=== PATIENT | female | born 1985 | race Asian ===

== ENCOUNTER 2019-01-27 06:04 | Inpatient (IN) | payer OTHER ==
[2019-01-27] MEDS ORDERED: OXYTOCIN/RINGERS LACTATE 1,000 ML IV PRN (06:24)
[2019-01-27] MEDS ORDERED: LR 1,000 ML IV PRN (06:24)
[2019-01-27] MEDS ORDERED: IBUPROFEN 600 MG TAB PO PRN (06:24)
[2019-01-27] MEDS ORDERED: MISOPROSTOL 200 MCG TAB PR PRN (06:24)
[2019-01-27] MEDS ORDERED: LIDOCAINE 1% 300 MG/30 ML SDV SC PRN (06:24)
[2019-01-27] MEDS ORDERED: OLIVE OIL 118 ML BTL MISC PRN (06:24)
[2019-01-27] MEDS ORDERED: EPSOM SALT 454 GM TP PRN (06:24)
[2019-01-27 07:04] LABS: PLATELET COUNT 284 10^3/uL (150-400)
[2019-01-27] MEDS ORDERED: AMMONIA AROMATIC 1 EACH AMP IH ONE (07:22)
[2019-01-27] MEDS ORDERED: OXYTOCIN 10 UNIT/ML VIAL ONE (07:23)
[2019-01-27] MEDS ORDERED: TERBUTALINE SULFATE 1 MG/ML VIAL ONE (07:23)
[2019-01-27] MEDS ORDERED: OXYTOCIN/LR *STANDARD DOSE PROTOCOL IV SCH (09:30)
--- NOTE | 2019-01-27 12:18 | PDGENHP ---
History and Physical - Chief Complaint Elective IOL - History of Present Illness Bee is a 33 yo now today at 39w1d by LEA of 02/02/19 (LEA based on 7wk US ) - who presents for elective IOL. Was 3cm in clinic last week. 2.5 yo daughter Lynda was born via - long labor and pushed for approximately 2 hours, ultimately needed an episiotomy for expedited delivery due to distress - had a nuchal x 1. This overall uncomplicated. Increased BMI. Failed Glucola passed 3hr. She has recently had an URI that's really been bothering her - but seems to be improving here recently. Labs: B positive AB negative Glucola 177, passed 3hr RPR NR Rubella IMMUNE Hep B neg HIV neg Standard Neg Parvo non-immune GCC neg AFP neg Innatal Neg GBS NEG VZV IMMUNE History Information - Allergies/Home Medication List Allergies/Adverse Reactions: shrimp Allergy (Uncoded 09/21/12 23:07) Home Medications: Prenatl Vit6/Iron/FA/B12/Ca/D3 07/01/16 [Last Taken 01/26/19 21:00] Famotidine [Pepcid 40mg] 40 mg PO HS PRN 01/27/19 [Last Taken 01/25/19 21:00] I have personally reviewed and updated: family history, medical history, social history, surgical history Past Medical History: Increased BMI - Surgical History Reports: no pertinent surgical hx - Family History Positive for: non-pertinent - Social History Smoking Status: Never smoked Review of Systems Review of Systems: ROS: 10pt was reviewed & negative except for what was stated in HPI & below Physical Exam Physical Exam: Alert, pleasant. Gravid abdomen, longitudinal lie No SCE initially. FHR 135bpm, mod jorge, accels present, no decels Tomas De Castro Irritable Lab Data & Imaging Review 01/27/19 06:45 WBC 10.71 10^3/uL (3.80-9.50) H 01/27/19 06:45 RBC 4.87 10^6/uL (4.18-5.33) 01/27/19 06:45 Hgb 13.6 g/dL (12.6-16.3) 01/27/19 06:45 Hct 40.9 % (38.0-47.0) 01/27/19 06:45 MCV 84.0 fL (81.5-99.8) 01/27/19 06:45 MCH 27.9 pg (27.9-34.1) 01/27/19 06:45 MCHC 33.3 g/dL (32.4-36.7) 01/27/19 06:45 RDW 14.0 % (11.5-15.2) 01/27/19 06:45 Plt Count 284 10^3/uL (150-400) 01/27/19 06:45 MPV 10.7 fL (8.7-11.7) 01/27/19 06:45 Neut % (Auto) 69.8 % (39.3-74.2) 01/27/19 06:45 Lymph % (Auto) 20.3 % (15.0-45.0) 01/27/19 06:45 [place] % (Auto) 7.5 % (4.5-13.0) 01/27/19 06:45 Eos % (Auto) 0.8 % (0.6-7.6) 01/27/19 06:45 Baso % (Auto) 0.1 % (0.3-1.7) L 01/27/19 06:45 Nucleat RBC Rel Count 0.0 % (0.0-0.2) 01/27/19 06:45 Absolute Neuts (auto) 7.48 10^3/uL (1.70-6.50) H 01/27/19 06:45 Absolute Lymphs (auto) 2.17 10^3/uL (1.00-3.00) 01/27/19 06:45 Absolute Monos (auto) 0.80 10^3/uL (0.30-0.80) 01/27/19 06:45 Absolute Eos (auto) 0.09 10^3/uL (0.03-0.40) 01/27/19 06:45 Absolute Basos (auto) 0.01 10^3/uL (0.02-0.10) L 01/27/19 06:45 Absolute Nucleated RBC 0.00 10^3/uL (0-0.01) 01/27/19 06:45 Immature Gran % 1.5 % (0.0-1.1) H 01/27/19 06:45 Immature Gran # 0.16 10^3/uL (0.00-0.10) H 01/27/19 06:45 Patient ABO/Rh B POSITIVE 01/27/19 06:45 Antibody Screen NEGATIVE 01/27/19 06:45 Assessment & Plan Assessment: 33 yo at 39w1d - here for elective IOL. 3cm dilated in clinic. GBS negative. Will start Pitocin this AM and AROM once into regular pattern. GBS negative. Will likely want epidural. Rh pos, Rubella and VZV immune. NUVIA
[2019-01-27] MEDS ORDERED: BUPIVACAINE 0.25% 10 ML SDV ONE (14:52)
[2019-01-27] MEDS ORDERED: fentaNYL 2MCG/ML/BUP 0.1% RTU 100 ML BAG EP ONE (14:52)
[2019-01-27] MEDS ORDERED: PHENYLEPHRINE HCL 100 MCG/ML SYR ONE (14:52)
[2019-01-27] MEDS ORDERED: PHENYLEPHRINE HCL 100 MCG/ML SYR IVP PRN (15:18)
[2019-01-27] MEDS ORDERED: ONDANSETRON 4 MG/2 ML VIAL IVP PRN (15:18)
[2019-01-27] MEDS ORDERED: NALOXONE HCL 0.4 MG/ML INJ IVP PRN (15:18)
--- NOTE | 2019-01-27 15:22 | PREANESOB ---
Obstetric Pre-Anesthesia Info - General Info Proposed Procedure: anthony : 2 Para: 1 LEA: 02/02/19 Gestational Age: 39 week(s) and 1 day(s) - Info Status: Full Term - Labor Status Indications for Labor Analgesia: Pain Control Labor Epidural: Yes Anesthesia Allergies/Adverse Reactions: Allergy/AdvReac Type Severity Reaction Status Date / Time shrimp Allergy Uncoded 09/21/12 23:07 Home Medications: Medication Instructions Recorded Prenatl Vit6/Iron/FA/B12/Ca/D3 07/01/16 Famotidine [Pepcid 40mg] 40 mg PO HS PRN 01/27/19 Visit Medications: Generic Name Dose Route Start Last Admin Trade Name Freq PRN Reason Stop Dose Admin Diphenhydramine HCl 25 - 50 mg 01/27/19 15:18 Benadryl Injection IVP 07/26/19 15:17 Q6HRS PRN Itching Lactated Ringer's 1,000 mls @ 0 mls/hr 01/27/19 06:24 01/27/19 09:23 Lr IV 01/28/19 06:23 1,000 mls PRN PRN Administration SEE PROTOCOL CONDITIONS Protocol Per Protocol Oxytocin/Lactated Ringer's 1,000 mls @ 125 mls/hr 01/27/19 06:24 Pitocin 20 Units/Lr (Premix) IV PRN PRN Post bleeding Oxytocin/Lactated Ringer's 500 mls @ 0 mls/hr 01/27/19 09:30 01/27/19 09:24 Pitocin 30 Units/Lr (Premix) IV 07/26/19 09:29 500 mls CONT CESAR Administration Protocol Per Protocol Fentanyl/Bupivacaine HCl 100 mls @ 0 mls/hr 01/27/19 15:30 Fentanyl/Bupivacaine/Ns 2 Mcg/Ml 0.1% (Premix EP 02/06/19 15:29 CONT CESAR Protocol As Directed Lactated Ringer's 500 mls @ 0 mls/hr 01/27/19 15:30 Lr IV 07/26/19 15:29 CONT CESAR As Directed Ibuprofen 600 mg 01/27/19 06:24 Motrin PO ONCE PRN post , pain Lidocaine HCl 300 mg 01/27/19 06:24 Lidocaine Hcl 1% SC 07/26/19 06:23 ONCE PRN episiotomy Magnesium Sulfate 454 gm 01/27/19 06:24 Epsom Salt TP 07/26/19 06:23 Q1H PRN perineal discomfort Misoprostol 800 - 1,000 mcg 01/27/19 06:24 Cytotec [place] ONCE PRN Vaginal Atony/Bleeding Naloxone HCl 0.4 mg 01/27/19 15:18 Narcan IVP 07/26/19 15:17 PRN PRN Respiratory depression Daisy Oil 118 ml 01/27/19 06:24 Sweet Oil MISC 07/26/19 06:23 ONCE PRN perineal massage Ondansetron HCl 4 mg 01/27/19 15:18 Zofran IVP 01/28/19 15:17 Q4HRS PRN Nausea/Vomiting, Can't Take PO Phenylephrine HCl 100 mcg 01/27/19 15:18 Neosynephrine IVP 07/26/19 15:17 .Q2M PRN Hypotension Discontinued Medications Generic Name Dose Route Start Last Admin Trade Name Freq PRN Reason Stop Dose Admin Ammonia (Aromatic Spirit) Confirm 01/27/19 07:22 Ammonia Aromatic Administered 01/27/19 07:23 Dose 1 each IH .STK-MED ONE Bupivacaine HCl Confirm 01/27/19 14:52 Sensorcaine 0.25% Sdv Administered 01/27/19 14:53 Dose 10 ml .ROUTE .STK-MED ONE Fentanyl/Bupivacaine HCl Confirm 01/27/19 14:52 Fentanyl/Bupivacaine/Ns 2 Mcg/Ml 0.1% (Premix Administered 01/27/19 14:53 Dose 100 ml EP .STK-MED ONE Oxytocin Confirm 01/27/19 07:23 Pitocin Administered 01/27/19 07:24 Dose 30 unit .ROUTE .STK-MED ONE Phenylephrine HCl Confirm 01/27/19 14:52 Neosynephrine Administered 01/27/19 14:53 Dose 1,000 mcg .ROUTE .STK-MED ONE Terbutaline Sulfate Confirm 01/27/19 07:23 Brethine Administered 01/27/19 07:24 Dose 1 mg .ROUTE .STK-MED ONE - Anesthesia History Response to Local Anesthetics: Normal Anesthesia & Operative History: No Prior Problems Family Anesthesia History: Not Applicable - Vital Signs Height/Weight (Nursing): Height 154.94 cm Weight 87.997 kg - Focused Exam Neck exam: FROM Mallampati Score: Class 2 Mouth exam: normal dental/mouth exam Pulmonary: no respiratory distress Cardiovascular: regular rate and rhythym Labs: 01/27/19 06:45 Patient ABO/Rh B POSITIVE 01/27/19 06:45 - Plan Consent Signed and on Chart: Yes Patient/Guardian Understands and Agrees to Plan: Yes Urgent/Emergent Case: Ken mendoza completed preop but documented later for safe timely pt care
[2019-01-27] MEDS ORDERED: fentaNYL 2MCG/ML/BUP 0.1% RTU 100 ML EP SCH (15:30)
[2019-01-27] MEDS ORDERED: LR 500 ML IV SCH (15:30)
[2019-01-27] MEDS ORDERED: ACETAMINOPHEN 325 MG TAB ONE (15:54)
[2019-01-27] MEDS ORDERED: IBUPROFEN 200 MG TAB PO ONE (15:54)
--- NOTE | 2019-01-27 16:03 | OBPROG ---
Labor Progress Note Assessment/Plan: Assessment: Continue pitocin, now ruptured. Epidural when requested. NUVIA Subjective/Intrapartum Course: Doing good - feeling regular uncomfortable ctx's now. Objective: 01/27/19 06:45 Patient ABO/Rh B POSITIVE 01/27/19 06:45 - SVE Dilation (cm): 3 Effacement (%): 75 Station: -1 Membranes: AROM Amniotic Fluid Color: Clear Dilation Complete Date: 01/27/19 Dilation Complete Time: 15:12 - Contraction Pattern Assessment Current Contraction Pattern: Regular - FHR Assessment Moran FHR (bpm): 135 FHR Pattern Variability: Moderate FHR Category: 1 - Procedures Non-surgical Procedures: Amniotomy Oxytocin Orders Assessment - Pre-Induction/Augmentation Assessment Gestational Age: 39 week(s) and 1 day(s) ICD10 Worksheet Patient Problems: Problems Problem Status Onset (spontaneous vaginal delivery) Acute
--- NOTE | 2019-01-27 16:03 | OBDEL ---
Info Type: Vaginal Presentation at Delivery: Vertex L&D Analgesia/Anesthesia Type: Epidural GBS+: No Intrapartum Medications: Generic Name Dose Route Start Last Admin Trade Name Freq PRN Reason Stop Dose Admin Lactated Ringer's 1,000 mls @ 0 mls/hr 01/27/19 06:24 01/27/19 09:23 Lr IV 01/28/19 06:23 1,000 mls PRN PRN Administration SEE PROTOCOL CONDITIONS Protocol Per Protocol Oxytocin/Lactated Ringer's 500 mls @ 0 mls/hr 01/27/19 09:30 01/27/19 09:24 Pitocin 30 Units/Lr (Premix) IV 07/26/19 09:29 500 mls CONT CESAR Administration Protocol Per Protocol Indications for Delivery: Elective Vaginal Delivery - Delivery Provider Delivery Physician/CNM: Joel Shannon - Labor and Delivery Onset of Contractions Date: 01/27/19 Onset of Contractions Time: 14:00 Onset of Contractions Type: Induced Rupture of Membranes Date: 01/27/19 Rupture of Membranes Time: 12:09 Rupture of Membranes Type: Artificial Amniotic Fluid Color: Clear Dilation Complete Date: 01/27/19 Dilation Complete Time: 15:12 Placenta Delivery Date: 01/27/19 Placenta Delivery Time: 15:25 Total Hours of Labor: 1 Non-surgical Procedures: Amniotomy Laceration: 2nd Degree, Other (Specify) (hemostatic sub-clitoral) Repair: 3-0 Vaginal Sponge Count Correct: Yes Vaginal Needle Count Correct: Yes Vaginal Sweep Performed: Yes EBL: 200 Delivery Events: Other (Specify) (Compound presentation w right arm) Delivery Comment: Pitocin started in the AM, then AROM with clear fluid hours later. Received labor epidural just moments before complaining of pressure and being found to be complete and +3. Pushed for approximately 10 mins and delivered vigorous baby girl over 2nd degree lac. Baby up to mom's chest, delayed cord clamping x 2 minutes. Placenta delivered spontaneously intact. Repaired 2nd degree lac 3- 0 vicryl standard fashion. Subclitoral lac was hemostatic. EBL 200cc, mom dad baby doing well in room. - Medications Labor Augmentation/Induction Methods Used: Pitocin Labor Augmentation/Induction Indication: Elective Brady Data LEA: 02/02/19 Gestational Age: 39 week(s) and 1 day(s) Moran Delivery Date: 01/27/19 Delivery Time: 15:21 Sex of Infant: Female Score (1 Min): 8 Score (5 Min): 9 Shoulder Dystocia Time Head Delivered: 15:21 Time Body Delivered: 15:21 Dystocia Comment: None ICD10 Worksheet Patient Problems: Problems Problem Status Onset Encounter for elective induction of labor Acute Obesity (BMI 30.0-34.9) Acute (spontaneous vaginal delivery) Acute - ICD10 Problem Qualifiers (1) Encounter for elective induction of labor (2) Obesity (BMI 30.0-34.9)
[2019-01-27] MEDS ORDERED: HYDROCORTISONE 0.5% CREAM TP PRN (16:04)
[2019-01-27] MEDS ORDERED: oxyCODONE IR 5 MG TAB PO PRN (16:04)
[2019-01-27] MEDS ORDERED: SIMETHICONE 80 MG TAB CHEW PO PRN (16:04)
[2019-01-27] MEDS: ACETAMINOPHEN 325 MG TAB PO PRN ×2 (16:05→22:07)
[2019-01-27] MEDS: DOCUSATE SODIUM 100 MG CAP PO PRN (22:07)
[2019-01-27] MEDS: IBUPROFEN 600 MG TAB PO PRN (22:07)
[2019-01-28] MEDS: IBUPROFEN 600 MG TAB PO PRN ×3 (04:26→18:32)
[2019-01-28] MEDS: ACETAMINOPHEN 325 MG TAB PO PRN ×3 (04:26→18:31)
--- NOTE | 2019-01-28 08:00 | POSTANESTH ---
Post Anesthetic Evaluation Cardiovascular Status: Normal, Stable Respiratory Status: Normal, Stable Level of Consciousness/Mental Status: Can Participate in Eval Pain Control: Adequate, Prn Tx Ordered Nausea/Vomiting Control: Adequate, Prn Tx Ordered Complications Possibly Related to Anesthesia: None Noted (Good analgesia from KARON. No complaints elicited on detailed questioning, ambulating and urinating without difficulty. No edema/erythema, or tenderness at KARON placement site.)
[2019-01-28] MEDS: DOCUSATE SODIUM 100 MG CAP PO PRN ×2 (10:55→21:24)
--- NOTE | 2019-01-28 11:35 | OBPP ---
Progress Note Assessment/Plan: Assessment: ppd# 1 s/p uncomplicated post course breast feeding Rh+/RI Plan: 01/28/19 11:34 Subjective/ Course: 01/28/19 11:34 patient is doing well. pain is well controlled. normal lochia. denies headache and changes in vision. breast feeding is going well. ambulating. voiding without difficulty. Objective: 01/27/19 06:45 Patient ABO/Rh B POSITIVE 01/27/19 06:45 Temp Pulse Resp BP Pulse Ox 36.7 C 96 20 125/82 H 96 01/28/19 09:20 01/28/19 09:20 01/28/19 09:20 01/28/19 09:20 01/27/19 19:45 Uterine Position/Fundal Height: Umbilicus -2 Physical Exam - Physical Exam Neck: non-tender, full range of motion, supple Respiratory: chest non-tender, lungs clear, normal breath sounds Cardiac/Chest: normal peripheral pulses, regular rate, rhythm Abdomen: normal bowel sounds, non-tender, other (fundus firm and non tender) Extremities: normal range of motion, non-tender, normal inspection, normal capillary refill Skin: normal color, warm/dry Neuro/Psych: no motor/sensory deficits, alert, normal mood/affect, oriented x 3
[2019-01-29] MEDS: ACETAMINOPHEN 325 MG TAB PO PRN ×3 (00:25→12:07)
[2019-01-29] MEDS: IBUPROFEN 600 MG TAB PO PRN ×3 (00:26→12:06)
[2019-01-29 08:47] VITALS: BP 123/75
[2019-01-29] MEDS: DOCUSATE SODIUM 100 MG CAP PO PRN (08:56)
--- NOTE | 2019-01-29 11:31 | OBGCSDC ---
General Delivery Information - General Info : 2 Para: 2 Abortions: 0 Type: Vaginal L&D Analgesia/Anesthesia Type: Epidural Admission Date: 01/27/19 Labs: Patient ABO/Rh B POSITIVE 01/27/19 06:45 Hct 40.9 % (38.0-47.0) 01/27/19 06:45 - Hospital Course : 01/28/19 11:34 patient is doing well. pain is well controlled. normal lochia. denies headache and changes in vision. breast feeding is going well. ambulating. voiding without difficulty. Vaginal - Delivery Provider Delivery Physician/CNM: Joel Shannon - Diagnosis Labor: Induced Rupture of Membranes Type: Artificial Amniotic Fluid Color: Clear Laceration: 2nd Degree, Other (Specify) (hemostatic sub-clitoral) Repair: 3-0 Delivery Events: Other (Specify) (Compound presentation w right arm) - Procedures Non-surgical Procedures: Amniotomy - Delivery Non-surgical Procedures: Amniotomy EBL: 200 [employer] Data LEA: 02/02/19 Gestational Age: 39 week(s) and 3 day(s) Moran Delivery Date: 01/27/19 Delivery Time: 15:21 Sex of Infant: Female Weight (gm): 3140 g Score (1 Min): 8 Score (5 Min): 9
--- NOTE | 2019-01-29 11:31 | OBPP ---
Progress Note Assessment/Plan: Assessment: Continue pitocin, now ruptured. Epidural when requested. NUVIA Subjective/ Course: 01/28/19 11:34 patient is doing well. pain is well controlled. normal lochia. denies headache and changes in vision. breast feeding is going well. ambulating. voiding without difficulty. Objective: 01/27/19 06:45 Patient ABO/Rh B POSITIVE 01/27/19 06:45 Temp Pulse Resp BP Pulse Ox 36.1 C 79 16 123/75 H 96 01/29/19 08:47 01/29/19 08:47 01/29/19 08:47 01/29/19 08:47 01/29/19 08:47
== END 2019-01-29 12:46 | disposition home or self-care (01) | DRG 807 ==
LOC: FLD 06:04 → FOB 17:31
PROVIDERS: ADMIT Obstetrics & Gynecology; ATTEND Obstetrics & Gynecology
DX: O70.1 Second degree perineal laceration during delivery (principal); O32.8XX0 Maternal care for other malpresentation of fetus, not applicable or unspecified; O99.513 Diseases of the respiratory system complicating pregnancy, third trimester; J06.9 Acute upper respiratory infection, unspecified; Z3A.39 39 weeks gestation of pregnancy; Z37.0 Single live birth
CPT/HCPCS: J2370; J2590; J3105